=== PATIENT | female | born 2000 | race Caucasian/White ===

== ENCOUNTER → 2020-05-25 | Outpatient (CLI) | payer OTHER ==
--- NOTE | 2020-05-25 13:39 | Diagnostic Imaging Report ---
INDICATION: Loss of control implant. 2 views of left humerus show 3.8 cm in length opaque foreign body in the subcutaneous soft tissues in the medial aspect of the upper arm of the junction of the middle and distal thirds of the humerus. IMPRESSION: The left arm implanted contraceptive device is present in the medial soft tissues of the left upper arm. Dictated by: Dictated on workstation # [id number]
== END ==
LOC: RAD 13:13
PROVIDERS: ATTEND Obstetrics & Gynecology
DX: D49.2 Neoplasm of unspecified behavior of bone, soft tissue, and skin (principal); Z97.5 Presence of (intrauterine) contraceptive device
CPT/HCPCS: 73060

== ENCOUNTER 2020-06-19 05:51 | Outpatient (CLI) | payer OTHER ==
[~2020-06-19] VITALS: Ht 167.7 cm; Wt 97.7 kg
[2020-06-19] MEDS ORDERED: MULT-141 PO (15:30)
[2020-06-19] MEDS ORDERED: LORA10TA76 PO (15:30)
== END 2020-06-19 15:35 ==
LOC: PREOP 05:51
PROVIDERS: ATTEND Surgery
DX: Z01.818 Encounter for other preprocedural examination (principal)

== ENCOUNTER 2020-06-21 08:59 | Day surgery (SDC) | payer OTHER ==
[~2020-06-21] VITALS: Ht 167.7 cm; Wt 97.7 kg
[2020-06-21] VITALS (8 sets, daily range): BP systolic 112–152; BP diastolic 57–94
[~2020-06-21 08:59] MED LIST: LORA10TA76 PO; MULT-141 PO
--- NOTE | 2020-06-21 09:16 | Progress Note-Pre Operative ---
Pre-Operative Progress Note H&P Reviewed The H&P was reviewed, patient examined and no changes noted. Date Seen by Provider: Jun 21, 2020 Time Seen by Provider: 09:15 Date H&P Reviewed: Jun 21, 2020 Time H&P Reviewed: 09:10 Pre-Operative Diagnosis: removal of foreign body (nexplanon implant) left upper arm BRIONNA POSEY APRN Jun 21, 2020 09:16
[2020-06-21] MEDS ORDERED: ACHD5005 PO (09:20)
--- NOTE | 2020-06-21 09:22 | Discharge Inst-Surgical ---
D/C Lap Instructions-KIDO Reconcile Patient Problems Problems Reviewed?: Yes New, Converted, or Re-Newed RX: RX on Chart Follow Up Appt in 2 weeks Activity as tolerated No driving for 24 hours No driving while on pain medications Regular Diet Symptoms to Report: Fever over 101 degree F, Nausea/Vomiting Infection Signs and Symptoms to report: Increased redness, Foul odor of wound, Increased drainage Bathing instructions: May shower Operative Area Clean/Dry; Keep incision clean/dry If any problems/questions: Contact your physician or go to Emergency Room BRIONNA POSEY APRN Jun 21, 2020 09:22
[2020-06-21] MEDS ORDERED: ACETAMINOPHEN 325 MG TABLET PO PRN (09:30)
[2020-06-21] MEDS ORDERED: ONDANSETRON 4 MG/2 ML (SDV) Z0FRAN IVP PRN ×2 (09:30→12:00)
[2020-06-21] MEDS ORDERED: morphine INJ 10 MG/ML 1ML (SYR OR VIAL) IVP PRN (09:30)
[2020-06-21] MEDS ORDERED: HYDROcodone/APAP 5 MG/325 MG (LORTAB) TAB PO ONE (09:30)
[2020-06-21] MEDS ORDERED: ceFAZolin 2 GM IV Premixed 50 ML ONE (09:36)
[2020-06-21] MEDS ORDERED: LACTATED RINGERS 1,000 ML IV PRN (09:37)
[2020-06-21] MEDS ORDERED: ceFAZolin 2 GM IV Premixed 50 ML IV ONE (09:45)
[2020-06-21] MEDS ORDERED: LIDOCAINE PF 2% 5 ML (XYLOCAINE) VIAL ONE (09:48)
[2020-06-21] MEDS ORDERED: proPOfol 200 MG/20 ML (DIPRIVAN) VIAL IV ONE ×2 (09:48→11:29)
[2020-06-21] MEDS ORDERED: MIDAZOLAM 2 MG/2 ML (VERSED) VIAL ONE ×2 (09:49→10:59)
[2020-06-21] MEDS ORDERED: BUP/EPI 0.25% 1:200,000 (MARCAINE) 30 ML VIAL ONE (10:24)
[2020-06-21] MEDS ORDERED: KETAMINE/NaCl 50 MG/5 ML SYRINGE (ED ONLY) ONE (11:10)
--- NOTE | 2020-06-21 11:23 | Progress Note-Post Operative ---
Post-Operative Progess Note Surgeon (s)/Certified Cytotechnologist (s) Surgeon KIKO NIXON MD Certified Cytotechnologist: jonathan swenson CARDIOLOGY COORDINATOR Pre-Operative Diagnosis foreign body left arm Post-Operative Diagnosis same Procedure & Operative Findings Date of Procedure 06/21/20 Procedure Performed/Findings removal of foreign body (nexplanon implant) left upper arm, subcutaneous Anesthesia Type mac with local Estimated Blood Loss Estimated blood loss (mL): minimal Specimens/Packing Specimens Removed none KIKO NIXON MD Jun 21, 2020 11:23
--- NOTE | 2020-06-21 11:49 | Anesthesia-General Post-Op ---
MAC Patient Condition Mental Status/LOC: Same as Preop Cardiovascular: Satisfactory Nausea/Vomiting: Absent Respiratory: Satisfactory Pain: Controlled Complications: Absent Post Op Complications Complications None Follow Up Care/Instructions Patient Instructions None needed. Anesthesiology Discharge Order Discharge Order Patient is doing well, no complaints, stable vital signs, no apparent adverse anesthesia problems. GALLO MICHAEL DO Jun 21, 2020 11:49
[2020-06-21] MEDS ORDERED: morphine INJ 10 MG/ML 1ML (SYR OR VIAL) IVP ONE (12:00)
--- NOTE | 2020-06-21 12:45 | Diagnostic Imaging Report ---
INDICATION: Fluoroscopy during control device removal from soft tissues. Fluoroscopy was provided in the OR during contraceptive device removal from the left upper arm. 7 seconds of fluoroscopic time was utilized. A single image was obtained. IMPRESSION: Fluoroscopy during foreign body removal. Dictated by: Dictated on workstation # [id number]
--- NOTE | 2020-06-21 15:28 | OPERATIVE REPORT ---
DATE OF SERVICE: 06/21/2020 ATTENDING PRIMARY PLASTERER SPOT: Maria D Mckinley APRN PREOPERATIVE DIAGNOSIS: Retained foreign body, right upper extremity, which was a Nexplanon implant. PREOPERATIVE DIAGNOSIS: Retained foreign body, right upper extremity, which was a Nexplanon implant. PROCEDURE: Excision of foreign body, upper extremity in the subcutaneous tissue under fluoroscopy. SURGEON: Kiko Nixon MD BICYCLE COURIER: Ja Fitch APRN. ANESTHESIA: Monitored anesthesia care with local. ESTIMATED BLOOD LOSS: Minimal. FINDINGS: Foreign body identified under fluoroscopy and removed completely intact. DISPOSITION: The patient tolerated the procedure well. INDICATIONS: The patient is a 19-year-old female, who has had implantable contraception with an Nexplanon implants placed twice. She reports that her last one was placed approximately 3 years ago and she would like to proceed with another modality for contraception. She has seen two other physicians and underwent local exploration; however, the foreign body could not be identified or retrieved. DESCRIPTION OF PROCEDURE: The patient was brought to the operating room, laid supine on the table. After adequate IV pain and stated medications and monitored anesthesia care, the left upper extremity was prepped and draped in standard surgical fashion. A 0.5% Marcaine with epinephrine was used to anesthetize overlying skin to the foreign body, which was identified under fluoroscopy. A horizontal skin incision was then made along the previous incision site using a 15 blade. Subcutaneous tissue was then dissected using electrocautery. Using fluoroscopy, the foreign body was identified and the subcutaneous tissue was dissected out using Metzenbaum scissors as well as electrocautery. The implant was removed completely intact with visualization of good hemostasis. The subcutaneous tissue was then reapproximated using 3-0 Vicryl interrupted sutures. Skin was closed using 4-0 Monocryl running subcuticular suture. Wound was then cleaned and covered with Dermabond. The patient tolerated the procedure well. We will start IV and oral pain medication. When she is tolerating clears, has good pain control with oral pain medications, ambulating well, we will discharge her home. We will have her follow up with her clinician for her next form of contraception. Job ID: [id number] DocumentID: [id number] Dictated Date: 06/21/2020 11:31:35 Lpn Or Medical Assistant Date: 06/21/2020 15:28:36 Dictated By: KIKO NIXON MD
== END 2020-06-21 12:45 | disposition home or self-care (01) ==
LOC: SDC 08:59
PROVIDERS: ATTEND Surgery
DX: Z30.46 Encounter for surveillance of implantable subdermal contraceptive (principal); Z11.2 Encounter for screening for other bacterial diseases; K21.9 Gastro-esophageal reflux disease without esophagitis; J45.909 Unspecified asthma, uncomplicated
CPT/HCPCS: 76000; 84703; 87081